=== PATIENT | female | born 1955 | race Caucasian/White ===

== ENCOUNTER 2017-01-07 09:27 | Day surgery (SDC) | payer OTHER ==
--- NOTE | 2017-01-07 08:19 | HP ---
DATE OF SURGERY: 01/07/2017 HISTORY OF PRESENT ILLNESS: The patient is a 61 year-old who had some upper abdominal aches. She had some work up in the past with ultrasound that did not show any obvious stones. She underwent endoscopic ultrasound with Dr. Thayer who thought she had some pancreatitis probably related to some gallstone issues, thought she had some small stones or sludge, thickened gallbladder wall concern for chronic cholecystitis. She was referred for consideration for cholecystectomy. PAST MEDICAL HISTORY: Reflux. History of shingles in the past. History of mitral valve prolapse. PAST SURGICAL HISTORY: Hysterectomy in the past. Endoscopy in the past. Carpal tunnel. She had a shoulder fracture in the past. MEDICATIONS: Prilosec, Reglan, Colace, Movantik. ALLERGIES: CODEINE, SULFA, PENICILLIN, MORPHINE, IODINE. FAMILY HISTORY: Hypertension, diabetes. SOCIAL HISTORY: No smoking. No alcohol abuse. REVIEW OF SYSTEMS: Twelve systems reviewed per admission assessment. She has been seen by a specialist in [place] in the past. She recently has seen Dr. Thayer. No chest pain or palpitations other systems negative or noncontributory as above and per preadmission questionnaire. PHYSICAL EXAMINATION: GENERAL: No acute distress. HEENT: Sclerae nonicteric. NECK: No JVD. CHEST: Equal excursion, nonlabored breathing. CVS: Regular rate and rhythm. ABDOMEN: Soft. Mild tenderness epigastrium, left upper quadrant. No peritoneal signs. EXTREMITIES: No significant edema. NEURO: Alert, moving extremities symmetrically. No gross motor deficits noted. IMPRESSION: Question of gallstone induced pancreatitis, sludge or small gallstones, some wall thickening, possible chronic cholecystectomies. I feel the patient will benefit from cholecystectomy. Risks and benefits explained in detail including but not limited to bleeding or infection, risk of trocar injury or hernia, small risk of bowel, bladder or blood vessel injury, small risk of bile leak, bile duct injury, retained stone or sludge possibly requiring further procedure either open or ERCP, general risk of anesthesia, deep venous thrombosis, pulmonary embolism, pneumonia, perioperative risk of aches, pains, bloating, constipation and/or loose stools possibly even chronic in nature, possibility the procedure may not improve her symptoms and need further work up and/or testing or she may have continuation of pains from pancreatitis itself, consent is obtained, will proceed with laparoscopic cholecystectomy possible open as an outpatient.
[~2017-01-07 09:27] MED LIST: Lactated Ringers 1,000 ML IV ONE; Sensorcaine 0.25% 10 ML ONE
[2017-01-07] MEDS ORDERED: Levofloxacin 500MG/100ML D5W 500 MG/100 ML BAG IV SCH (10:00)
[2017-01-07] MEDS ORDERED: CLINDAMYCIN-D5W 900 MG/50 ML*** 900 MG/50 ML BAG IV SCH (10:00)
[2017-01-07] MEDS ORDERED: Lactated Ringers 1,000 ML IV SCH (10:00)
[2017-01-07] MEDS ORDERED: DILAUDID 2 MG INJECTION ONE (12:57)
[2017-01-07] MEDS ORDERED: Zofran 4 MG/2 ML VIAL ONE (13:11)
--- NOTE | 2017-01-07 14:51 | OP ---
SURGERY DATE/TIME: 01/07/2017 1153 PREOPERATIVE DIAGNOSIS: History of pancreatitis. History of sludge or small gallstones on endoscopic ultrasound with wall thickening and chronic cholecystitis. POSTOPERATIVE DIAGNOSIS: History of pancreatitis. History of sludge or small gallstones on endoscopic ultrasound with wall thickening and chronic cholecystitis. PROCEDURE: Laparoscopic cholecystectomy. SURGEON: Dr. Mio Wheatley. ANESTHESIA: General. ESTIMATED BLOOD LOSS: Minimal. INDICATIONS: As noted above. Risks and benefits explained in detail but not limited to and consent obtained. DESCRIPTION OF PROCEDURE AND FINDINGS: The patient was taken to the OR. General anesthesia was induced. Abdomen was prepped and draped in the usual sterile fashion. After official time out and no disagreement with planned procedure, a transverse incision made at the supraumbilical area. Fascia grasped and pulled upward. Veress needle inserted and tested with saline. Pneumoperitoneum accomplished insufflating opening pressure of 0-15. An 11 mm bladeless port and camera were inserted without difficulty followed by two - 5 mm right upper quadrant ports and another 5 mm epigastric port. Under direct vision of the camera, there is no evidence of any intra-abdominal injury secondary to trocar insertion. She did have some omental adhesions up over the top of the gallbladder, sinus tract inflammation and these carefully taken down with combination of pinpoint cautery and hook cautery with gentle blunt dissection. It should also be noted that she has some adhesions and some fibrofatty tissue adjacent to the falciform that was adhesed up to the anterior edge of the liver. With some pneumoperitoneum insufflation actually caused a little peeling back of this capsule and this slightly fatty infiltrated liver. Some mild ooze there was cauterized. The rest of this adhesion was taken down to avoid peeling it further. Good hemostasis appeared to be noted. At this point the gallbladder was dissected posterior lateral to anterior fashion. Main cystic artery isolated directly on the gallbladder wall, clipped x3 and divided this opened up the angle. The cystic duct was well skeletonized until a critical view was obtained both anteriorly and posteriorly it was then clipped x3 and divided in usual fashion. Additional oozing side branches off the cystic artery going directly to the infundibulum this was also clipped. The gallbladder slowly and carefully dissected free from its dense almost concrete attachments to the liver bed clipping additional oozing side branches off the cystic artery as necessary directly on the gallbladder wall. Just prior to releasing from final attachments to the anterior edge of the liver the liver bed re-inspected. Clips noted to be in place in cystic duct and cystic artery stumps. There were no signs of any active bleeding or bile leakage. The raw surface of the liver capsule that had oozing earlier had good hemostasis. It was felt there was no benefit from drain placement. The gallbladder was released from final attachments to the anterior edge of the liver. It was then pulled up into the 10/11 umbilical port, decompressed of bile, pulled free. It had some sludge-like bile. There were no large stones. The smaller ones were suctioned up with suction police specialist, decompressing the gallbladder. The gallbladder pulled free and passed off. The 10/11 port site closed with puncture closure device with #1 Vicryl. Liver bed re-inspected one last time. Good hemostasis noted. Copious amount of irrigation accomplished lateral to the liver and subhepatic space irrigating until clear. The liver bed re-inspected. Clips noted to be in place in cystic duct and cystic artery stumps. There were no signs of any active bleeding or bile leakage. It was felt there was no benefit in drain placement at this point. Pneumoperitoneum decompressed. The wound was irrigated out. Skin incision closed with 4-0 Vicryl. Steri-Strips and sterile dressing applied, 0.25% Marcaine local injected along the skin incision fascial defect. The patient tolerated the procedure well. Transferred to recovery in stable condition. There were no immediate complications. Findings discussed with the family out in the waiting area.
[2017-01-07 15:31] VITALS: BP 152/80; PULSE 83; O2SAT 18
== END 2017-01-07 14:50 | disposition home or self-care (01) ==
LOC: SDC 09:27
PROVIDERS: ATTEND Surgery
PROC: 0FT44ZZ Resection of Gallbladder, Percutaneous Endoscopic Approach (ICD-10-PCS; principal; 2017-01-07)
DX: K81.1 Chronic cholecystitis (principal); I34.1 Nonrheumatic mitral (valve) prolapse
CPT/HCPCS: 00790; 36415; 88304; J1170; J1956; J2405